=== PATIENT | female | born 1980 | race Caucasian/White ===

== ENCOUNTER 2017-03-18 22:27 | Emergency (ER) | payer OTHER ==
[~2017-03-18] VITALS: Ht 165.1 cm; Wt 70.0 kg
[2017-03-18 22:29] VITALS: BP 123/85; PULSE 70; RESP 18; TEMP 98.5; O2SAT 98
--- NOTE | 2017-03-19 07:39 | EKG ---
Date Performed: 03/18/2017 Time Performed: 23:33:58 PTAGE: 36 years EKG: SINUS BRADYCARDIA BORDERLINE ECG INTERPRETATION BASED ON A DEFAULT AGE OF 38 YEARS NO PREVIOUS TRACING DOCTOR: Nicolas Guzmán Interpretating Date/Time 03/19/2017 07:38:26
== END 2017-03-18 23:38 | disposition left against medical advice (07) ==
LOC: NED 22:27
DX: R94.31 Abnormal electrocardiogram [ECG] [EKG] (principal); Z53.21 Procedure and treatment not carried out due to patient leaving prior to being seen by health care provider
CPT/HCPCS: 93005; 99281